=== PATIENT | female | born 1990 | race Caucasian/White ===

== ENCOUNTER 2018-11-05 05:25 | Day surgery (SDC) | payer BC, OTHER ==
[~2018-11-05] VITALS: Ht 162.6 cm; Wt 64.0 kg
[2018-11-05 12:36] VITALS: BP 119/70
[2018-11-05 17:12] VITALS: BP 119/70
--- NOTE | 2018-11-06 21:55 | O ---
[facility] [place] [address] OPERATIVE REPORT Name: IRMA YOUNG Room #: DEP [facility].#: [id number] Admission: 11/05/18 ������������������ Attend Phys: Roman Mcrae MD Discharge: 11/05/18 ������������������ Date of : 86 Report #: [id number] THIS REPORT FOR: //name// CC: CHAY Mcrae Physician staff DATE OF SERVICE: 11/05/2018 SERVICE: Orthopedics. FACILITY: [facility]. SURGEON: Roman Mcrae MD. SUPERVISOR SHED WORKERS: La Nena Mason NP. PREOPERATIVE DIAGNOSES: 1. Left knee anterior cruciate ligament tear. 2. Grade 1 left knee posterolateral corner injury, healed. POSTOPERATIVE DIAGNOSES: 1. Left knee anterior cruciate ligament tear. 2. Grade 1 left knee posterolateral corner injury, healed. 3. Left knee posterior horn lateral meniscus tear. 4. Patellar chondromalacia. PROCEDURE: 1. Left knee arthroscopy with ACL reconstruction with quadriceps tendon autograft. 2. Left knee partial lateral meniscectomy. 3. Chondroplasty patella, left knee. COMPLICATIONS: None. DRAINS: None. SPECIMENS: None. FINDINGS: 1. Arthrex quad tendon with 10 mm femoral socket and 11 mm tibial tunnel. 2. Inner rim flap tear of the lateral meniscus treated with limited debridement. There was also a partial thickness femoral-sided posterior horn tear in the red-white zone, which was approximately 11-12 mm in length and was stable. Using an 18-gauge spinal needle to trephinate the posterior horn to enhance healing. [facility] [address] [place] [address] OPERATIVE REPORT Name: IRMA YOUNG Room #: DEP [facility].#: [id number] Admission: 11/05/18 ������������������ Attend Phys: Roman Mcrae MD Discharge: 11/05/18 ������������������ Date of : 86 Report #: [id number] 3. Stable posterolateral corner examination. HISTORY: The patient is a 28-year-old female who sustained a snow-skiing injury approximately 6 weeks ago that resulted in an ACL rupture as well as a grade 1 posterolateral corner injury. She was treated conservatively for a period of time to restore range of motion, physical therapy and was doing well. She did have instability and she had laxity on physical examination. She was indicated for surgical treatment and wished to have definitive treatment after risks, benefits, alternatives and indications of surgery were discussed with her in detail. The risks of which include pain, bleeding, infection, injury to nerves or blood vessels, failure of any repairs, reconstruction, progression of any preexisting chondral injury, stiffness, need for further surgery as well as complications related to anesthesia such as stroke, heart attack, thromboembolic disease and pulmonary complications. PROCEDURE IN DETAIL: After the left lower extremity was correctly identified in the preoperative holding area as the operative extremity, the patient underwent placement of single shot regional nerve block by anesthesia. She was then taken to the operating room where general anesthesia was induced without complication. She was padded appropriately. Prophylactic antibiotics were administered at appropriate time. Tourniquet was applied to the left leg. Left lower extremity was then prepped and draped in standard sterile fashion. Examination under anesthesia demonstrated a positive Chester and pivot shift. The knee was stable to varus stress at 0 and 30 degrees and symmetric with the contralateral knee. Esmarch was utilized. Tourniquet was inflated to 250 mmHg. Total tourniquet time was 105 minutes. An incision made based off the superior pole of the patella, dissection was taken down to the quadriceps tendon where partial thickness graft was harvested off the superior pole measuring approximately 70 mm in length. It was split into a Y-shaped graft and prepared with whipstitches x 2 on the femoral side and x 2 on the tibial side as well. The synovial side of the donor site was then closed with 0 Vicryl suture in a running locking fashion with the knee flexed. An 11 blade was used to establish the anterolateral portal as well as anterior medial viewing portal. Diagnostic arthroscopy revealed grade 3 chondromalacia of the patella, which was treated with a limited patellar chondroplasty with the shaver. The ACL was torn. The stump was resected. The medial compartment was normal and the medial meniscus was stable to probing. The lateral meniscus had the above stated tears. The shaver and a biter were used to perform a small inner rim partial meniscectomy to stable perimeter and then the femoral side of the posterior horn of the lateral meniscus was evaluated. There was a partial thickness tear that was mechanically stable. An 18-gauge spinal needle was used to trephinate the posterior capsule to enhance healing and then limited debridement was performed within the partial thickness tear itself to also stimulate healing response. [facility] [address] [place] [address] OPERATIVE REPORT Name: IRMA YOUNG Room #: DEP [facility] Romelia#: [id number] Admission: 11/05/18 ������������������ Attend Phys: Roman Mcrae MD Discharge: 11/05/18 ������������������ Date of : 86 Report #: [id number] The ACL stump was resected and the Arthrex FlipCutter guide was used to place a 10 mm x 22 mm socket in the femoral salamatof footprint and then the guidepin was placed and an 11 mm tunnel was created on the tibial side. The graft was then passed and secured in an outside-in fashion. The femoral cortical suspensory button fixation was tied with #2 labral tapes. A total of 4 limbs yielding 2 knotted segments for secure fixation. The knee was then taken through a range of motion repeatedly to eliminate graft and then the interference screw was placed with the knee in extension with a reverse Chester maneuver. The patient had a shorter than typical tibial tunnel, so I did cut the proximal 2 threads off in order to have a better fit with interference screw with the plan for the screw to be placed between the two limbs of the Y-shaped graft. The whipstitches on either side were then placed into the tibia with a SwiveLock in the standard fashion for backup fixation. Chester was restored to normal. The patient achieved full extension. Tourniquet was let down, hemostasis achieved. Deep layers closed with 2-0 Vicryl, skin was closed with 3-0 Monocryl followed by Steri-Strips and a sterile dressing. PolarCare compression hose and a knee immobilizer were then applied. The patient was awakened from anesthesia and taken to recovery room in stable condition. There were no complications. All counts were correct. ��������������������������������������������� <ELECTRONICALLY SIGNED> ���������������������������������������� By: Roman Mcrae MD ��������������������������������������������� 11/06/18 [id number] Roman Mcrae MD /nt
== END 2018-11-05 18:10 | disposition home or self-care (01) ==
LOC: OR 05:25 → TBA 05:30 → OR 09:01
DX: S83.512A Sprain of anterior cruciate ligament of left knee, initial encounter (principal); S83.282A Other tear of lateral meniscus, current injury, left knee, initial encounter; M22.42 Chondromalacia patellae, left knee; Z98.890 Other specified postprocedural states; X58.XXXA Exposure to other specified factors, initial encounter; Y93.89 Activity, other specified; Y92.89 Other specified places as the place of occurrence of the external cause; Y99.8 Other external cause status
CPT/HCPCS: 50010; 50101; 50386; 50405; 50951; 51038; 51320; 51331; 52001; 52282; 52313; 54118; 54170; 55430; 56524; 56527; 57103; 57180; 62110; 62900; 65060; 70005